=== PATIENT | female | born 1960 | race African-American/Black ===

== ENCOUNTER 2021-10-06 00:43 | Emergency (ER) | payer BC, MEDICAID ==
[~2021-10-06] VITALS: Ht 177.8 cm; Wt 71.2 kg
[2021-10-06 00:45] VITALS: BP 131/76
--- NOTE | 2021-10-06 00:47 | NUR ---
TOM[facility]S PRATHER VIA GURNEY TO BED 07.
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
--- NOTE | 2021-10-06 00:56 | NUR ---
ERMD WITH PT AT BEDSIDE.
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
[2021-10-06] MEDS ORDERED: HYDROcodone/APAP 5/325 MG 1 TAB TAB PO ONE (01:10)
--- NOTE | 2021-10-06 01:11 | NUR ---
Amanda LYNCH at bedside to speak with patient.
[2021-10-06 01:56] VITALS: BP 128/67
--- NOTE | 2021-10-06 01:56 | NUR ---
The patient's care was reviewed and supervised by Rosalva Nunez RN.
--- NOTE | 2021-10-06 01:57 | NUR ---
Patient discharged with v/s stable. Written and verbal after care instructions given and explained. Patient verbalized understanding. Ambulatory with steady gait. ID BAND REMOVED. All questions addressed prior to discharge. Advised to follow up with PMD.
--- NOTE | 2021-10-06 02:10 | NUR ---
PT REQUESTED [employer] [facility]. SPOKE WITH [facility] AND VERBALIZED THAT [employer] WILL BE APPROXIMATELY AN HOUR. PT ESCORTED TO [facility]. [employer] VOUCHER GIVEN TO [employer] MACHINE MECHANIC.
== END 2021-10-06 01:57 | disposition home or self-care (01) ==
LOC: MED 00:43
DX: S06.0X9A Concussion with loss of consciousness of unspecified duration, initial encounter (principal); S40.029A Contusion of unspecified upper arm, initial encounter; Y04.2XXA Assault by strike against or bumped into by another person, initial encounter; Y93.89 Activity, other specified; Y92.811 Bus as the place of occurrence of the external cause; Y99.8 Other external cause status
CPT/HCPCS: 99283